=== PATIENT | female | born 1995 | race Caucasian/White ===

== ENCOUNTER 2019-05-11 14:19 | Outpatient (CLI) | payer OTHER ==
[~2019-05-11] VITALS: Ht 165.1 cm; Wt 84.9 kg
[2019-05-11 15:50] VITALS: Ht 165.1 cm; Wt 84.9 kg
[2019-05-11] MEDS ORDERED: PNV11TAB PO (15:55)
--- NOTE | 2019-05-11 18:54 | PN ---
Triage Information Date/Time Reason for visit: Weeks of Gestation 32.4 /Para 1 Results/Medications Result Diagram: 05/11/19 1615 05/11/19 1614 Results 24 hrs Laboratory Tests Test 05/11/19 16:14 05/11/19 16:15 05/11/19 16:30 Sodium Level 140 Potassium Level 4.2 Chloride Level 108 Carbon Dioxide Level 24 Anion Gap 8 Blood Urea Nitrogen 5 L Creatinine 0.47 Est Glomerular Filtrat Rate mL/min > 60 Glucose Level 108 Calcium Level 9.0 Total Bilirubin 0.4 Direct Bilirubin 0.00 Indirect Bilirubin 0.4 Aspartate Amino Transf (AST/SGOT) 20 Alanine Aminotransferase (ALT/SGPT) 18 Alkaline Phosphatase 97 Total Protein 6.8 Albumin 3.5 Globulin 3.30 H Albumin/Globulin Ratio 1.06 White Blood Count 10.4 Red Blood Count 4.11 L Hemoglobin 11.4 L Hematocrit 35.4 L Mean Corpuscular Volume 86.1 Mean Corpuscular Hemoglobin 27.7 L Mean Corpuscular Hemoglobin Concent 32.2 Red Cell Distribution Width 15.9 H Platelet Count 249 Mean Platelet Volume 11.7 H Immature Granulocytes % 0.900 H Neutrophils % 73.9 Lymphocytes % 14.1 L Monocytes % 9.6 Eosinophils % 1.1 Basophils % 0.4 Nucleated Red Blood Cells % 0.0 Immature Granulocytes # 0.090 H Neutrophils # 7.7 H Lymphocytes # 1.5 Monocytes # 1.0 H Eosinophils # 0.1 Basophils # 0.0 Nucleated Red Blood Cells # 0.0 Membranes Rupture NEGATIVE Assessment/Plan patient presented by primary ob for rule out PPROM ROM plus negative EFW 2016 g BPP 06/04 discharge to home MILESTONE,BURKE WHEELER May 11, 2019 18:54
--- NOTE | 2019-05-11 19:08 | TRIAGE ---
OB Triage Datetime Report Generated by CPN: 05/11/2019 19:07 Datetime: 05/11/2019 18:27 Labor Evaluation Frequency: 0 Monitor Mode: External Quality: Mild Pattern: Normal: <= 5 Contractions in 10 Minutes Resting Tone [place]: Relaxed Heart Rate FHR Baseline Rate: 130 Monitor Mode: External US FHR Baseline Changes: No Baseline Change Variability: Moderate 6-25 bpm Accelerations: 15X15 Decelerations: None Category: Category I Pain Assessment Pain Presence: None/Denies Datetime: 05/11/2019 17:29 Labor Evaluation Frequency: 0 Monitor Mode: External Heart Rate FHR Baseline Rate: 135 Monitor Mode: External US FHR Baseline Changes: No Baseline Change Variability: Moderate 6-25 bpm Accelerations: 15X15 Decelerations: None Category: Category I Pain Assessment Pain Presence: None/Denies Datetime: 05/11/2019 16:27 Labor Evaluation Frequency: 0 Monitor Mode: External Heart Rate FHR Baseline Rate: 140 Monitor Mode: External US FHR Baseline Changes: No Baseline Change Variability: Moderate 6-25 bpm Accelerations: 15X15 Decelerations: None Category: Category I Pain Assessment Pain Presence: None/Denies Datetime: 05/11/2019 15:53 Stage of : OB Triage Assessment Type: Triage Maternal Assessment Level of Consciousness: Keenly Alert, Responsive DTR's/Clonus: DTRs 2+; No Clonus Headache: Denies Blurred Vision: No Respiratory Effort: Unlabored; Regular Rhythm; Equal Expansion Breath Sounds, Left: Clear and Equal Breath Sounds, Right: Clear and Equal Nausea/Vomiting: Denies RUQ Epigastric Pain: Denies Lower Extremities Edema: None Degree: None Upper Extremities Edema: None Degree: None Facial Edema: None Fall Risk Assessment History of Falling: (0) No Secondary Diagnosis: (0) No Ambulatory Aid: (0) Bedrest/Nurse Assist IV Therapy: (0) No Gait: (0) Normal/Bedrest/Immobile Mental Status: (0) Oriented to Own Ability Fall Score: 0 Fall Risk Score Definition: No Risk: No action required Datetime: 05/11/2019 15:52 Time of Arrival: 05/11/2019 14:08 EGA: 32.4 Arrived By: Ambulatory Arrived From: Home Chief Complaint: LEAKING Movement: Present Contractions: Denies/Absent Rupture of Membranes: Denies Vaginal Bleeding: None Vaginal Discharge: Present Recent Sexual Intercouse: Denies Abdominal Trauma: Not Applicable Patient Complaints: Other Time Provider Notified: 05/11/2019 15:53 Provider Notified: DR PLEITEZ Initial Plan: NST BPP EFW CL CBC CMP
== END 2019-05-11 18:50 | disposition home or self-care (01) ==
LOC: OBT 14:19 → L-D 14:22 → OBT 18:50
PROVIDERS: ATTEND Obstetrics & Gynecology
DX: O42.913 Preterm premature rupture of membranes, unspecified as to length of time between rupture and onset of labor, third trimester (principal); Z3A.32 32 weeks gestation of pregnancy
CPT/HCPCS: 76815; 76817; 76818; 80053; 84112; 85025; Z7500; G0463

== ENCOUNTER 2019-06-08 12:54 | Inpatient (IN) | payer OTHER ==
[~2019-06-08] VITALS: Ht 167.6 cm; Wt 89.4 kg
[~2019-06-08 12:54] MED LIST: PNV11TAB PO
[2019-06-08 15:03] VITALS: BP 118/57; PULSE 81; RESP 18
--- NOTE | 2019-06-10 23:04 | PN ---
DATE: 06/09/2019 SUBJECTIVE: The patient feels good. No contractions, no pain, no lower abdominal pain. heart tones are normal throughout the night. No deceleration. OBJECTIVE: VITAL SIGNS: She is afebrile. Vital signs are stable. ABDOMEN: Soft, no tenderness noted. No vaginal bleeding. ASSESSMENT: A 36 and 5/7 weeks intrauterine post fall. PLAN: The patient was planned to go home. Today, she was counseled. She was instructed. She was discharged home in good and stable condition on general diet and activity was restricted. She was to ld to keep the appointment in the clinic. FINAL DIAGNOSIS: A 36 and 5/7 weeks intrauterine post fall. Dictated By: BRIT GRIFFIN/NURIS Conf#: [id number] DID#: [id number]
--- NOTE | 2019-06-11 06:26 | PREOPHP ---
DATE OF ADMISSION: 06/08/2019 HISTORY OF PRESENT ILLNESS: This is a 24-year-old lady, 1 and EDC 07/02/2019 and about 36 an d 4/7 weeks , admitted to labor and delivery area for observation. This patient fell and hit her hands, but did not hit her stoma at all, but she came in to be checked. She was having mild low er abdominal pains and low back pains. She had care in my [place] office and the c are was uneventful. PAST PERSONAL HISTORY: No history of diabetes, TB, asthma. ALLERGIES: NO ALLERGIES. SOCIAL HISTORY: Patient does not smoke. She does not drink. MEDICATIONS: She does not take any drugs except her iron and vitamins. FAMILY HISTORY: Parents have diabetes, otherwise noncontributory. GYNECOLOGIC HISTORY: She had menarche at the age of 13, every 28 days interval, 3 to 4 days duration , and moderate in amount. REVIEW OF SYSTEMS: CARDIOVASCULAR: No chest pains. RESPIRATORY: No cough. GASTROINTESTINAL: No diarrhea, no vomiting. GENITOURINARY: No dysuria. PHYSICAL EXAMINATION: GENERAL: In the conscious, coherent lady and in no acute distress. VITAL SIGNS: Her blood pressure 120/80, pulse rate 80 per minute, respirations 16 per minute. BREASTS, HEART AND LUNGS: Within normal limits. ABDOMEN: Soft. No organomegaly, no tenderness noted. Fundal height 36 cm. heart tones 140 p er minute. PELVIC: Revealed the cervix to be closed. EXTREMITIES: No pedal edema. ADMITTING DIAGNOSIS: A 36 and 4/7 weeks intrauterine , post fall. The patient was planned to be observed in the evening during the observation. The patient was noted to have some 3 variable decelerations, so the patient was planned to be observed overnight and to be continuously monitored a nd to repeat her ultrasound the following day after admission. The plans were explained to the patie nt and she understood everything totally. The risks, benefits and alternatives were discussed with er as well. Dictated By: BRIT GRIFFIN/NURIS Conf#: [id number] DID#: [id number]
--- NOTE | 2019-06-15 06:26 | DS ---
DATE OF ADMISSION: 06/08/2019 DATE OF DISCHARGE: 06/09/2019 This is a 24-year-old lady 1, EDC July 02, 2019, ____, labor and delivery ____ for observ ation. History ____. The patient was observed in the hospital and in the evening she was noted to have 3 variable decelera tions and that she did not have any pain, so she was observed overnight. During the night of observa tion, the heart tones were normal and in the morning she was feeling good. No pain, no contrac tions and heart rate normal. On June 09, 2019, she was evaluated. She was doing good, so danette warren was discharged ____. She was told to come back to the [facility] on her regular appointment. She was told to come back to the hospital if there was any problem or concerns. She was discharged in s table condition. FINAL DIAGNOSIS: ____. Dictated By: BRIT GRIFFIN/NURIS Conf#: [id number] DID#: [id number]
== END 2019-06-09 17:29 | disposition home or self-care (01) | DRG 833 ==
LOC: OBT 12:54 → L-D 12:55 → OBT 18:50 → L-D 19:06
PROVIDERS: ADMIT Obstetrics & Gynecology; ATTEND Obstetrics & Gynecology
DX: O26.893 Other specified pregnancy related conditions, third trimester (principal); O76 Abnormality in fetal heart rate and rhythm complicating labor and delivery; M54.5 Low back pain; R10.30 Lower abdominal pain, unspecified; Z91.81 History of falling; Z3A.36 36 weeks gestation of pregnancy
CPT/HCPCS: 76818; 81001; 85025; 85460; 85610; 85730; G0463

== ENCOUNTER 2019-07-01 06:00 | Inpatient (IN) | payer OTHER ==
[~2019-07-01] VITALS: Ht 165.1 cm; Wt 91.7 kg
[2019-07-01] MEDS ORDERED: LIDOCAINE 1% (MPF) 30 ML INJ INJ PRN (12:00)
[2019-07-01] MEDS ORDERED: OXYTOCIN 30 UNITS/LR 500 ML IV SCH ×3 (12:00)
[2019-07-01] MEDS ORDERED: OXYTOCIN 30 UNITS/LR 500 ML IV PRN (12:00)
[2019-07-01] MEDS ORDERED: MISOPROSTOL 200 MCG TAB PR PRN (12:00)
[2019-07-01] MEDS ORDERED: CARBOPROST 250 MCG INJ IM PRN (12:00)
[2019-07-01] MEDS ORDERED: METHYLERGONOVINE 0.2 MG INJ IM PRN (12:00)
[2019-07-01] MEDS ORDERED: BUTORPHANOL 2 MG INJ IV PRN ×2 (12:00)
[2019-07-01 12:01] VITALS: Ht 165.1 cm; Wt 91.7 kg
[2019-07-01 12:02] VITALS: RESP 18
[2019-07-01] MEDS: LACTATED RINGER'S 1,000 ML IV SCH ×3 (12:51→20:30)
[2019-07-01] MEDS ORDERED: KETOROLAC 30 MG INJ IV PRN (19:00)
[2019-07-01] MEDS ORDERED: HYDROmorphONE 0.5 MG/0.5 ML SYG IV PRN ×2 (19:00)
[2019-07-01] MEDS ORDERED: ONDANSETRON 4 MG INJ IV PRN (19:00)
[2019-07-01] MEDS ORDERED: NALOXONE (0.4 MG/ML) INJ IV PRN (19:00)
[2019-07-01] MEDS ORDERED: FENTAnyl 2MCG/ML-ROPIV 0.2% 100 ML BAG EPI SCH (19:00)
[2019-07-01] MEDS ORDERED: DIPHENHYDRAMINE 50 MG INJ IV PRN (19:00)
[2019-07-02] MEDS: LACTATED RINGER'S 1,000 ML IV SCH ×2 (03:28→08:12)
[2019-07-02] MEDS ORDERED: AMPICILLIN 2 GM/NS (PMX) 100 ML IVPB ONE (09:00)
[2019-07-02] MEDS ORDERED: SODIUM CHLORIDE 0.9% 1L IRRIG IRR SCH (09:00)
[2019-07-02] MEDS ORDERED: CARBOPROST 250 MCG INJ IM PRN (11:30)
[2019-07-02] MEDS ORDERED: ZOLPIDEM 5 MG TAB PO PRN (11:30)
[2019-07-02] MEDS ORDERED: OXYTOCIN 30 UNITS/LR 500 ML IV PRN (11:30)
[2019-07-02] MEDS ORDERED: WITCH HAZEL/GLYCERIN PAD PR PRN (11:30)
[2019-07-02] MEDS ORDERED: LANOLIN HPA 1 PKT TOP PRN (11:30)
[2019-07-02] MEDS ORDERED: ONDANSETRON 4 MG INJ IV PRN (11:30)
[2019-07-02] MEDS ORDERED: METHYLERGONOVINE 0.2 MG INJ IM PRN (11:30)
[2019-07-02] MEDS ORDERED: ACETAMINOPHEN 325 MG TAB PO PRN (11:30)
[2019-07-02] MEDS ORDERED: DIPHENHYDRAMINE 25 MG CAP PO PRN (11:30)
[2019-07-02] MEDS ORDERED: NACL 0.9% 3 ML SYG IV SCH (11:30)
[2019-07-02] MEDS ORDERED: MISOPROSTOL 200 MCG TAB PR PRN (11:30)
[2019-07-02] MEDS: OXYTOCIN 30 UNITS/LR 500 ML IV SCH ×2 (11:50→15:45)
[2019-07-02 12:30] VITALS: BP 120/62; RESP 18
[2019-07-02] MEDS ORDERED: AMPICILLIN 1 GM/NS (PMX) 50 ML IVPB SCH (13:00)
[2019-07-02] MEDS: IBUPROFEN 600 MG TAB PO SCH ×3 (13:04→23:41)
[2019-07-02] MEDS: SENNA/DOCUSATE NA (8.6MG/50MG) TAB PO SCH ×2 (13:04→21:03)
[2019-07-02 16:00] VITALS: BP 120/62; RESP 18
[2019-07-02 17:00] VITALS: BP 118/72; RESP 18
[2019-07-02 20:25] VITALS: BP 108/71; PULSE 88; RESP 18
[2019-07-03 03:07] VITALS: BP 109/52; PULSE 78; RESP 17
[2019-07-03] MEDS: IBUPROFEN 600 MG TAB PO SCH ×3 (05:46→17:39)
[2019-07-03 08:00] VITALS: BP 110/57; PULSE 77; RESP 16
[2019-07-03] MEDS: SENNA/DOCUSATE NA (8.6MG/50MG) TAB PO SCH ×2 (09:00→21:48)
[2019-07-03 15:59] VITALS: BP 110/61; PULSE 77; RESP 16
[2019-07-03 20:00] VITALS: BP 120/66; PULSE 19; RESP 18
[2019-07-04] MEDS: IBUPROFEN 600 MG TAB PO SCH ×4 (00:03→18:00)
[2019-07-04 03:56] VITALS: BP 109/54; RESP 18
[2019-07-04 08:00] VITALS: BP 118/77; PULSE 78; RESP 18
[2019-07-04] MEDS ORDERED: MEASLES,MUMPS,RUBELLA VACCINE INJ SC* ONE (09:00)
[2019-07-04] MEDS ORDERED: DIPHTH/TET/ACEL PERTUSS (ADULT) 0.5 ML VIAL IM* ONE (09:00)
[2019-07-04] MEDS ORDERED: VARICELLA VACCINE LIVE/PF 1,350 UNIT/0.5 ML ML SC* ONE (09:00)
[2019-07-04] MEDS: SENNA/DOCUSATE NA (8.6MG/50MG) TAB PO SCH (09:18)
[2019-07-04 15:12] VITALS: BP 117/70; PULSE 76; RESP 18
== END 2019-07-04 19:00 | disposition home or self-care (01) | DRG 807 ==
LOC: L-D 06:15 → PP1 07-02 15:56
PROVIDERS: ADMIT Obstetrics & Gynecology; ATTEND Obstetrics & Gynecology
PROC: 10E0XZZ Delivery of Products of Conception, External Approach (ICD-10-PCS; principal; 2019-07-02)
PROC: 0HQ9XZZ Repair Perineum Skin, External Approach (ICD-10-PCS; 2019-07-02)
DX: O70.0 First degree perineal laceration during delivery (principal); Z37.0 Single live birth; Z3A.40 40 weeks gestation of pregnancy
CPT/HCPCS: 62322; 76815; 85025; 85610; 85730; 86592; 86850; 86900; 86901; 87340; 90716; J0290; J0595; J2590; J3010; J7120